=== PATIENT | male | born 1945 | race Caucasian/White ===

== ENCOUNTER → 2018-10-11 13:52 | Outpatient (CLI) | payer MEDICARE, SELFPAY ==
[2018-10-11 14:51] LABS: BUN Creatinine Ratio 12.9 (6-22); Blood Urea Nitrogen 22 mg/dL (9-20); Carbon Dioxide 26 mmol/L (22-32); Chloride 101 mmol/L (98-107); Creatine Kinase 48 U/L (55-170); Glucose 100 mg/dL (80-110); HEMOLYSIS < 15 (0-50); Potassium 4.1 mmol/L (3.4-5.1); Sodium 137 mmol/L (137-145)
[2018-10-11 15:58] LABS: Creatinine Urine Random 121.1 mg/dL
[2018-10-11 16:00] LABS: Microalbumi Creatinin Ratio Ur 22.2 ug/mg CR (<30); Microalbumin Urine Random 2.7 mg/dL (0-1.6)
== END ==
PROVIDERS: Visit Provider Internal Medicine
DX: N18.9 Chronic kidney disease, unspecified (principal)
CPT/HCPCS: 36415; 80051; 82043; 82550; 82565; 82570; 82947; 84520

== ENCOUNTER → 2020-01-07 16:41 | Outpatient (CLI) | payer MEDICARE, SELFPAY ==
[2020-01-07 17:41] LABS: Alanine Aminotransferase 12 IU/L (<50); Albumin 4.4 g/dL (3.5-5.0); Albumin Globulin Ratio 1.7 (1.0-2.8); Alkaline Phosphatase 76 U/L (38-126); Aspartate Aminotransferase 24 IU/L (17-59); BUN Creatinine Ratio 12.6 (6-22); Bilirubin Total 0.8 mg/dL (0.2-1.3); Blood Urea Nitrogen 20 mg/dL (9-20); Calcium 9.4 mg/dL (8.4-10.2); Carbon Dioxide 24 mmol/L (22-32); Chloride 103 mmol/L (98-107); Globulin 2.6 g/dL (1.7-4.1); Glucose 116 mg/dL (80-110); HEMOLYSIS < 15 (0-50); Potassium 4.5 mmol/L (3.4-5.1); Sodium 135 mmol/L (137-145)
[2020-01-07 18:12] LABS: TSH w/ Reflex to FT4 1.16 uIU/mL (0.47-4.68)
== END ==
PROVIDERS: PCP Internal Medicine; Referring Provider Internal Medicine; Visit Provider Internal Medicine
DX: I10 Essential (primary) hypertension (principal); E78.2 Mixed hyperlipidemia; N18.9 Chronic kidney disease, unspecified; F32.9 Major depressive disorder, single episode, unspecified
CPT/HCPCS: 36415; 80053; 84443

== ENCOUNTER → 2020-04-05 14:51 | Outpatient (CLI) | payer MEDICARE, SELFPAY ==
[2020-04-05 15:31] LABS: BUN Creatinine Ratio 14.8 (6-22); Blood Urea Nitrogen 23 mg/dL (9-20); Carbon Dioxide 27 mmol/L (22-32); Chloride 100 mmol/L (98-107); Estimated Glomerular Filt Rate 44.3 mL/min (>60); Glucose 106 mg/dL (80-110); HEMOLYSIS < 15 (0-50); Potassium 4.1 mmol/L (3.4-5.1); Sodium 136 mmol/L (137-145)
== END ==
PROVIDERS: PCP Internal Medicine; Referring Provider Internal Medicine; Visit Provider Internal Medicine
DX: I10 Essential (primary) hypertension (principal); E78.2 Mixed hyperlipidemia; F41.9 Anxiety disorder, unspecified
CPT/HCPCS: 36415; 80048; 84153

== ENCOUNTER → 2020-05-07 17:02 | Outpatient (CLI) | payer MEDICARE, SELFPAY ==
[2020-05-07 18:34] LABS: Cholesterol 241 mg/dL (140-199); HDL Cholesterol 50 mg/dL (40-60); LDL Cholesterol Calculated 153 mg/dL (<100); Triglycerides 189 mg/dL (35-150); VLDL Cholesterol Calculated 38 mg/dL (2-30)
== END ==
PROVIDERS: PCP Internal Medicine; Referring Provider Internal Medicine; Visit Provider Internal Medicine
DX: E78.2 Mixed hyperlipidemia (principal)
CPT/HCPCS: 36415; 80061

== ENCOUNTER → 2021-01-24 12:24 | Outpatient (CLI) | payer MEDICARE, SELFPAY ==
[2021-01-24 15:08] LABS: BUN Creatinine Ratio 9.7 (6-22); Blood Urea Nitrogen 14 mg/dL (9-20); Carbon Dioxide 25 mmol/L (22-32); Chloride 102 mmol/L (98-107); Estimated Glomerular Filt Rate 48.1 mL/min (>60); Glucose 93 mg/dL (80-110); HEMOLYSIS < 15 (0-50); Potassium 4.3 mmol/L (3.4-5.1); Sodium 135 mmol/L (137-145)
== END ==
PROVIDERS: PCP Internal Medicine; Referring Provider Internal Medicine; Visit Provider Internal Medicine
DX: I10 Essential (primary) hypertension (principal)
CPT/HCPCS: 36415; 80048